=== PATIENT | female | born 1975 | race Caucasian/White ===

== ENCOUNTER 2018-11-27 09:05 | Emergency (ER) | payer MEDICAID ==
[~2018-11-27] VITALS: Ht 167.6 cm; Wt 69.9 kg
[~2018-11-27 09:05] MED LIST: MINE133E23 PR; PSYL0.5213 PO
[2018-11-27 09:14] VITALS: Ht 167.6 cm; Wt 69.9 kg
[2018-11-27] MEDS ORDERED: KETOROLAC 60 MG INJ IM STA (09:41)
--- NOTE | 2018-11-27 09:41 | ERD ---
ER Documentation Chief Complaint Chief Complaint Complains of abdominal pain x 3 days HPI This is a 43-year-old female with a nonsignificant past medical history presents ED with complaints of right-sided back pain times 3 days. 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 Rates it 6 out of 10 and states that it is constant. Patient denies any current abdominal pain or abdominal complaints despite with chief complaint states. Admits to some painful range of motion. Denies decreased range of motion, fever, chills, dysuria, hematuria, tingling, numbness, lack sensation, radiation of back pain, bowel/bladder incontinence, saddle paresthesias, nausea, vomiting, diarrhea, constipation, and all other symptoms. Patient is requesting an x-ray of her lumbar spine today. ROS All systems reviewed and are negative except as per history of present illness. Medications Home Meds Active Scripts Ibuprofen* (Motrin*) 600 Mg Tab, 600 MG PO Q6, #30 TAB Prov:DREW THAPA PA-C 11/27/18 Mineral Oil* (Fleet* Mineral Oil Enema) 133 Ml Oil, 133 ML ND NEEDED PRN for CONSTIPATION for 3 Days, #3 ENEMA 0 Refills Prov:CRISTOPHER SOLER PA-C 09/05/16 Psyllium Husk (Metamucil) 0.52 Gm Capsule, 0.52 GM PO BID for 5 Days, #10 CAP 0 Refills Prov:CRISTOPHER SOLER PA-C 09/05/16 Allergies Allergies: Coded Allergies: No Known Allergy (Verified , 09/05/16) PMhx/Soc History of Surgery: No Anesthesia Reaction: No Hx Neurological Disorder: No Hx Respiratory Disorders: No Hx Cardiac Disorders: No Hx Psychiatric Problems: No Hx Miscellaneous Medical Probl: No Hx Alcohol Use: No Hx Substance Use: No Hx Tobacco Use: No Smoking Status: Never smoker Physical Exam Vitals Vital Signs Date Temp Pulse Resp B/P (MAP) Pulse Ox O2 O2 Flow FiO2 Time Delivery Rate 11/27/18 97.5 85 20 155/86 100 09:14 (109) Physical Exam Const: No acute distress Head: Atraumatic Eyes: Normal Conjunctiva ENT: Normal External Ears, Nose and Mouth. Neck: Full range of motion. No meningismus. Resp: Clear to auscultation bilaterally Cardio: Regular rate and rhythm, no murmurs Abd: Soft, non tender, non distended. Normal bowel sounds Skin: No petechiae or rashes Back: No midline or flank tenderness, there is no midline tenderness in the thoracic or lumbar spine, there is mild tenderness palpation along the paravertebral muscles in the right lumbar spine, no step-off deformities, no decreased range of motion with forward flexion, extension left and right lateral rotation Ext: No cyanosis, or edema Neur: Awake and alert Psych: Normal Mood and Affect Results 24 hrs Laboratory Tests Test 11/27/18 09:54 POC Beta HCG, Qualitative NEGATIVE Current Medications Medications Dose Sig/Dinesh Start Time Status Last (Trade) Ordered Route PRN Stop Time Admin Dose Reason Admin Ketorolac 60 mg ONCE STAT 11/27/18 DC 11/27/18 Tromethamine IM 09:41 11/27/18 10:05 (Toradol) 09:43 10 mg ONCE ONCE 11/27/18 DC 11/27/18 Cyclobenzapri PO 10:00 11/27/18 10:05 ne HCl 10:01 (Flexeril) Procedures/MDM EKG, MONITORS, & DIAGNOSTIC IMAGING: [place] [address] Radiology Main Line: [phone] DIAGNOSTIC IMAGING REPORT Patient: TIFFANIE BENSON : 1975 Age: 43 Sex: F MR #: [id number] DOS: 11/27/18 0941 Ordering MD: DREW THAPA PA-C Location: [facility] Room/Bed: PROCEDURE: XR Lumbar Spine. CLINICAL INDICATION: PAIN TECHNIQUE: AP, lateral and cone-down lateral view of the lumbar spine were obtained. COMPARISON: No prior studies are available for comparison. FINDINGS: There is normal vertebral mineralization and alignment. No fracture or subluxation is seen. The disc spaces are normal in appearance. The posterior elements are unremarkable. The soft tissues appear normal. IMPRESSION: Unremarkable lumbar spine. .Pelon Cuello MD, MD Date Time Electronically viewed and signed by .Pelon Cuello MD, on 11/27/2018 10:48 .A/ CC: DREW THAPA PA-C [phone] ER COURSE: The patient was given Flexeril and Toradol The medication was well tolerated and the patient reports improvement in symptoms. The patient was stable throughout ED course. I kept the patient and/or family informed of laboratory and diagnostic imaging results throughout the emergency room course. The patient was promptly evaluated and a treatment plan was devised based on H&P and other data. This plan was discussed with the patient who agreed and had no further questions or concerns prior to discharge. MEDICAL DECISION MAKING: This is a 43-year-old female presents ED with complaints of right-sided back pain times 3 days. x ray unremarkable. Given mechanism of injury and location of back pain being along the paravertebral muscles this is likely a muscle strain or muscle related pain. History and physical examination other data not consistent with processing including cauda equina syndrome, cord compression, infiltrative etiology, infectious etiology, epidural abscess, fracture, obstructive pyelonephritis, abdominal aortic aneurysm. Vitals are stable and patient can be managed outpatient with close follow-up. Advised patient to follow up with primary care in the next 48 hours. return to ED with any worsening symptoms DISPOSITION PLAN: We discussed follow up with the patient's primary care doctor within 24 to 48 hours. Patient counseled regarding my diagnostic impression and care plan. Prior to discharge all questions answered. Pt agrees with treatment plan and understands strict return precautions. Precautionary instructions provided including instructions to return to the ER if not improving or for any worsening or changing symptoms or concerns. SPECIALIST FOLLOW UP RECOMMENDED: None Patient has been advised to follow up with primary care in 1-2 days. Disclaimer: Inadvertent spelling and grammatical errors are likely due to EHR/dictation software use and do not reflect on the overall quality of patient care. Also, please note that the electronic time recorded on this note does not necessarily reflect the actual time of the patient encounter. Blood Pressure Assessment: Patient's blood pressure was elevated (>120/80) but appears stable without evidence of hypertension emergency or urgency. The vini bryant was counseled about the risks of hypertension and urged to pursue outpatient monitoring and therapy within a week with their primary care physician. Departure Diagnosis: Primary Impression: Back pain Back pain location: low back pain Chronicity: acute Back pain laterality: right Sciatica presence: without sciatica Qualified Codes: M54.5 - Low back pain Condition: Stable Patient Instructions: Back Pain (Acute Or Chronic) [facility] Additional Instructions: Paciente aconseja volver a Departamento de urgencias inmediatamente para sntomas nuevos o que empeoran . Paciente aconseja posteriores con el PCP en 1-2 coates . Paciente verbaliza la comprehensin y est de acuerdo con el tratamiento y el curso de accin. Si el paciente no tiene ninguna de atencin primaria pueden seguir con [facility] [address] [place] [address] o [facility] + [address] [address] DREW THAPA PA-C Nov 27, 2018 09:41
[2018-11-27] MEDS ORDERED: CYCLOBENZAPRINE 10 MG TAB PO ONE (10:00)
[2018-11-27] MEDS ORDERED: IBUP-1542 PO (11:00)
== END 2018-11-27 11:09 | disposition home or self-care (01) ==
LOC: FTE 09:05
DX: M54.5 Low back pain (principal)
CPT/HCPCS: 72100; 81025; 96372; J1885; Z7502; Z7610

== ENCOUNTER 2019-07-26 09:18 | Emergency (ER) | payer MEDICAID, OTHER ==
[~2019-07-26] VITALS: Ht 162.6 cm; Wt 68.0 kg
[~2019-07-26 09:18] MED LIST changes: +DICL100G37 TOP; +HYDR-4011 PO; +IBUP-1542 PO; +NAPR-985 PO
[2019-07-26 09:25] VITALS: BP 135/75; PULSE 97; RESP 16; Ht 162.6 cm; Wt 68.0 kg
[2019-07-26] MEDS ORDERED: KETOROLAC 60 MG INJ IM STA (10:06)
== END 2019-07-26 11:37 | disposition home or self-care (01) ==
LOC: FTE 09:18
DX: M25.511 Pain in right shoulder (principal)
CPT/HCPCS: 73030; 81025; 96372; J1885; Z7502